=== PATIENT | male | born 1975 | race Caucasian/White ===

== ENCOUNTER → 2016-04-21 | Day surgery (SDC) | payer MEDICAID ==
[2015-10-20 14:07] VITALS: BMI 28.3
[~2016-04-21] MED LIST: BUPIVACAINE 0.5% 30 ML VIAL ONE; CEFAZOLIN 1 GM VIAL ONE; FENTANYL 100 MCG/2 ML VIAL IV PRN; HYDROmorphone 1 MG INJECTION IV PRN; LABETALOL 20 MG/4 ML SYRINGE IV PRN; LIDOCAINE 1% 5 ML (METHYLPARABEN FREE) ONE; MEPERIDINE 25 MG/ML TUBEX IV PRN; ONDANSETRON HCL 4 MG ODT TAB PO PRN; ONDANSETRON HCL 4 MG/2 ML VIAL IV PRN; hydrALAZINE 20 MG/ML VIAL IV PRN
--- NOTE | 2016-04-21 09:59 | HIM.ANES ---
Anesthesia Evaluation & Plan Diagnoses: TRAUMATIC ARTHROPATHY, LEFT ANKLE AND FOOT (04/21/16) Consented Procedure: LEFT ANKLE IMPLANT REMOVAL WITH ARTHRODESIS AND OTHER PROCEDURES INDICATED - Focused Review of Systems Cardiac History: Yes: Hx Hypertension (NOT ON MEDICATION), Hx Cardiac Disorders HEENT: Yes: Loose/Decaying Teeth, Hx Vision Problem (CONTACTS OR GLASSES), Other HEENT Problems Hx Other HEENT Surgery: T&A Respiratory: Yes: Hx Snoring, Hx Pneumonia (2016) Gastrointestinal: Yes: Hx Gastroesophageal Reflux Disease (OCCASIONAL), Hx Gastrointestinal Disorders Neurological/Musculoskeletal: Yes: Hx Migraine, Hx Neurological Disorders Psychological: No Hx Mental/Emotional Disorders Blood/Autoimmune: No: Hx AIDS, Hx Hepatitis (type) Smoking Status: Never smoker Surgical History: Yes: T&A, Knee (RT KNEE ARTHROSCOPIC SX) Other Surgical History: T&A - Focused Physical Exam NPO since: 04/20/16 2300 Mallampati: Class II Thyromental Distance: Greater than 3 Neck: Full Range of Motion Dental: Loose/Decaying Teeth Cardiovascular/Chest: Normal Respiratory: Lungs clear Any problems with anesthesia, including nausea and vomiting?: No Any relatives with a history of Malignant Hyperthermia?: No Does patient have a history of Malignant Hyperthermia?: No Beta Violeta given (if appropriate): N/A Does the patient have a history of Motion Sickness-: No Other: Problem List Problem Status Onset Cellulitis of foot Acute Allergies Allergy/AdvReac Type Severity Reaction Status Date / Time shellfish derived Allergy Fever Verified 04/18/16 15:59 Home Medications Medication Instructions Recorded Last Taken Type Meloxicam 15 mg PO DAILY 04/18/16 04/20/16 21:00 History Height and Weight Patient's height 5 ft 4 in Patient's weight 74.843 kg BMI 28.3 Vital Signs Temperature 98.9 F 04/21/16 08:52 Pulse Rate 94 04/21/16 08:52 Respiratory Rate 18 04/21/16 08:52 Blood Pressure 156/101 H 04/21/16 08:52 Pulse Oxygen Saturation 99 04/21/16 08:52 METS - Level of Activity: Climbing stairs(1 flight),walking level ground, running short distance - Anesthetic Plan Anesthesia Type: General ASA Class: 2 -: I have examined this patient and reviewed the medical record. The patient has been assessed prior to anesthesia. Risks and benefits of anesthesia and anesthetic technique options have been discussed and all questions answered. The patient accepts the risk and desires me to proceed with the planned anesthetic.
[2016-04-21 14:37] VITALS: TEMP 98.5
--- NOTE | 2016-04-21 16:22 | DIRPT ---
CLINICAL DATA: History of left tibial plafond fracture. Patient now for tibiotalar joint effusion. Intraoperative films. EXAM: LEFT ANKLE - 2 VIEW COMPARISON: CT scan of the left ankle formed at an outside facility 01/11/2006. FINDINGS: 2 fluoroscopic spot views of the left ankle are provided. Images demonstrate screws in place across the tibiotalar joint. Fracture fixation hardware in the distal tibia and fibula have been removed. IMPRESSION: Left tibiotalar joint effusion. No acute finding. Electronically Signed By: Butch Doll M.D. On: 04/21/2016 16:19
[2016-04-21 16:43] VITALS: PULSE 94
[2016-04-21 17:24] VITALS: BP 167/105
--- NOTE | 2016-04-21 17:24 | SC.ANESPOS ---
Post-Anesthesia Note LOC: Fully Awake Post-Anesthesia Assessment: Awake, Returned to Baseline, Hemodynamically Stable , Pain Control Adequate Phase I & II Recovery Complete: Yes Apparent Anesthesia Complication: No : N PACU Discharge Time: 15:03 - Vital Signs Blood Pressure: 167/105 Pulse: 94 Resp Rate: 18 O2 Sat: 94 Temp: 98.5 F - Comments Anesthesia Discharge Time Report Time 15:03
--- NOTE | 2016-04-21 19:20 | HIMOP ---
DATE OF PROCEDURE: 04/21/2016 PREOPERATIVE DIAGNOSIS: Left ankle posttraumatic arthritis. POSTOPERATIVE DIAGNOSIS: Left ankle posttraumatic arthritis. PROCEDURES PERFORMED: 1. Left ankle arthrodesis. 2. Removal of implants. SURGEON: Pete Liao MD MUSIC ADAPTER: Jd Tong. ANESTHESIA: General endotracheal anesthesia. IV FLUIDS: Crystalloids. ESTIMATED BLOOD LOSS: 50 mL. SPECIMENS: None. COMPLICATIONS: None. IMPLANTS: 7-0 cannulated screws, stainless steel, 60 millimeter long and 90 millimeter long. BRIEF HISTORY: Ras Langston is a 40-year-old male, who back in 2005 had a comminuted intra- articular left ankle peel on fracture and underwent open reduction and internal fixation. The patient went on to develop posttraumatic osteoarthritis involving left ankle with involvement of the tibia talus joint. He had complaints of pain. The patient had tried activity modification as well as oral anti-inflammatory medication without any relief. The patient wanted to proceed with left ankle arthrodesis. He understood the risks involved in surgery include, but are not limited to risk of infection, damage to the nerve, blood vessel, need for further surgery, continued pain, DVT, pulmonary embolism, stroke, and even . He volunteered an informed consent. The patient was seen on the day of surgery in the preop holding area. Surgical site was marked. The patient was then wheeled back into the operating room. DESCRIPTION OF THE PROCEDURE: The patient was placed supine on the operating table. Proper timeout was performed. A 2 g of IV Ancef was given. Left lower extremity was prepped and draped. Left lower extremity tourniquet above the elbow ( ). After limb exsanguination, we proceeded with the removal of the implants. Previously made medial and lateral incisions were used. Through the lateral incision, the fibular plate was removed as well as all the locking and nonlocking screws. Through the medial incision, the medial plate was also removed. We then made a midline anterior incision and proceeded with the ankle arthrodesis. Skin and deep fascia was incised. The incision was made in line with the extensor hallucis longus. The extensor retinaculum was incised. The neurovascular bundle was carefully protected including sural nerve and was retracted. The joint capsule was incised in the midline. The joint was exposed. Anterior osteophytes from the talus and the distal tibia were removed. A lamina linux kernel engineer was used to distract the joint. The cartilage was denuded from the articular surface of the talus as well as the distal tibia. The bone harvested from the osteophytes was used as local autograft. We then inserted the wires for the 7-0 cannulated screws. One wire was inserted just above the medial malleolus across the ankle joint into the talus. The another wire was inserted from the fibula across the joint into the talus. Position of these wires were checked under AP and lateral C-arm images. We placed a 60 millimeter 7-0 cannulated screw stainless steel from the medial side and 90 millimeter long screw from the lateral side. The autografts were placed inside the ankle joint. Local compression was achieved. The wound was copiously irrigated with normal saline. All the 3 wounds were closed in layers. The patient tolerated the procedure very well and was taken to the recovery room in a stable condition. DISPOSITION: The patient would be nonweightbearing on his left lower extremity. He would follow up in the clinic in 2 weeks. [id number]
== END ==
LOC: SDC 08:37
PROVIDERS: ATTEND Orthopaedic Surgery
PROC: 0SGG07Z Fusion of Left Ankle Joint with Autologous Tissue Substitute, Open Approach (ICD-10-PCS; 2016-04-21)
PROC: 0QPK04Z Removal of Internal Fixation Device from Left Fibula, Open Approach (ICD-10-PCS; 2016-04-21)
PROC: 0SGG04Z Fusion of Left Ankle Joint with Internal Fixation Device, Open Approach (ICD-10-PCS; principal; 2016-04-21 10:30)
DX: M12.571 Traumatic arthropathy, right ankle and foot (principal); I10 Essential (primary) hypertension; K21.9 Gastro-esophageal reflux disease without esophagitis; G43.909 Migraine, unspecified, not intractable, without status migrainosus; Z79.899 Other long term (current) drug therapy
CPT/HCPCS: 20680; 27870; 73600; C1713; J0690; J3490